=== PATIENT | female | born 1970 | race Caucasian/White ===

== ENCOUNTER 2017-02-21 13:20 | Observation (INO) | payer BC, OTHER ==
[2017-02-21] MEDS ORDERED: ASPIRIN 81 MG TABLET, CHEWABLE PO ONE (14:09)
--- NOTE | 2017-02-21 14:11 | ER Document Report ---
ED Medical Screen (RME) - General Chief Complaint: Chest Pain Stated Complaint: CHEST PAIN Mode of Arrival: Ambulatory Information source: Patient Notes: Testing 46-year-old female presents to the emergency room with back ache radiating to the left shoulder on and off for the past 2 days. Cardiac risk factors include hypertension, smoking, family history and postmenopausal TRAVEL OUTSIDE OF THE [place] IN LAST 30 DAYS: No - Related Data Allergies/Adverse Reactions: No Known Allergies Allergy (Verified 02/21/17 13:30) Past Medical History - Past Medical History Cardiac Medical History: Reports: Hx Hypertension - meds x 2-3 months Pulmonary Medical History: Neurological Medical History: Endocrine Medical History: Reports: Hx Hypothyroidism Renal/ Medical History: Denies: Hx Peritoneal Dialysis Musculoskeltal Medical History: Past Surgical History: Reports: Hx Hysterectomy. Denies: Hx Pacemaker - Immunizations Hx Diphtheria, Pertussis, Tetanus Vaccination: Yes - 2009 Physical Exam - Vital signs Vitals: Temp Pulse Resp BP Pulse Ox 97.9 F 85 20 175/94 H 100 02/21/17 13:29 02/21/17 13:29 02/21/17 13:29 02/21/17 13:29 02/21/17 13:29 Course - Vital Signs Vital signs: Temp Pulse Resp BP Pulse Ox 97.9 F 85 20 175/94 H 100 02/21/17 13:29 02/21/17 13:29 02/21/17 13:29 02/21/17 13:29 02/21/17 13:29
[2017-02-21 14:58] LABS: ABSOLUTE BASOPHILS # (AUTO) 0.1 10^3/uL (0.0-0.2); ABSOLUTE EOSINOPHILS # (AUTO) 0.7 10^3/uL (0.0-0.6); ABSOLUTE LYMPHOCYTES (AUTO) 1.8 10^3/uL (0.5-4.7); ABSOLUTE MONOCYTES (AUTO) 0.4 10^3/uL (0.1-1.4); ABSOLUTE NEUT (AUTO) 4.1 10^3/uL (1.7-8.2); BASOPHILS % (AUTO) 1.1 % (0-2); EOSINOPHILS % (AUTO) 9.8 % (0-6); HEMATOCRIT 44.4 % (36.0-47.0); HEMOGLOBIN 14.6 g/dL (12.0-15.5); HGB HCT DIFFERENCE -0.6; LYMPHOCYTES % (AUTO) 25.1 % (13-45); MEAN CORPUSCULAR HEMOGLOBIN 27.8 pg (27.0-33.4); MEAN CORPUSCULAR HGB CONC 32.8 g/dL (32.0-36.0); MEAN CORPUSCULAR VOLUME 85 fl (80-97); MONOCYTES % (AUTO) 5.3 % (3-13); RED BLOOD COUNT 5.24 10^6/uL (3.72-5.28); RED CELL DISTRIBUTION WIDTH 15.2 % (11.5-14.0); SEGMENTED NEUTROPHILS % (AUTO) 58.7 % (42-78)
[2017-02-21 15:15] LABS: ALANINE AMINOTRANSFERASE 40 U/L (9-52); ALBUMIN 4.5 g/dL (3.5-5.0); ALKALINE PHOSPHATASE 100 U/L (38-126); ANION GAP 10 (5-19); ASPARTATE AMINO TRANSFERASE 30 U/L (14-36); BILIRUBIN,DIRECT 0.3 mg/dL (0.0-0.4); BILIRUBIN,TOTAL 0.5 mg/dL (0.2-1.3); BLOOD UREA NITROGEN 15 mg/dL (7-20); CALCIUM 9.4 mg/dL (8.4-10.2); CARBON DIOXIDE 26 mmol/L (22-30); CHLORIDE 106 mmol/L (98-107); CREATINE KINASE 79 U/L (30-135); GLUCOSE 89 mg/dL (75-110); POTASSIUM 4.2 mmol/L (3.6-5.0); TOTAL PROTEIN 7.7 g/dL (6.3-8.2)
--- NOTE | 2017-02-21 15:23 | RADIOLOGY REPORT (SQ) ---
EXAM DESCRIPTION: CHEST SINGLE VIEW COMPLETED DATE/TIME: 02/21/2017 2:54 pm REASON FOR STUDY: cp COMPARISON: 05/31/2014 NUMBER OF VIEWS: One view. TECHNIQUE: Single frontal radiographic view of the chest acquired. LIMITATIONS: Patient body habitus. FINDINGS: LUNGS AND PLEURA: No opacities, masses or pneumothorax. No pleural effusion. MEDIASTINUM AND HILAR STRUCTURES: No masses. Contour normal. HEART AND VASCULAR STRUCTURES: Heart normal in size. Normal vasculature. BONES: No acute findings. HARDWARE: None in the chest. OTHER: No other significant finding. IMPRESSION: NO SIGNIFICANT RADIOGRAPHIC FINDING IN THE CHEST. TECHNICAL DOCUMENTATION: JOB ID: [id number] [employer]- All Rights Reserved
[2017-02-21 15:27] LABS: CREATINE KINASE MB 0.71 ng/mL (<4.55)
[2017-02-21 15:29] LABS: TROPONIN I < 0.012 ng/mL
--- NOTE | 2017-02-21 15:46 | ER Document Report ---
ED General - General Chief Complaint: Chest Pain Stated Complaint: CHEST PAIN Time Seen by Provider: 02/21/17 14:21 Mode of Arrival: Ambulatory Information source: Patient Notes: 46-year-old female history of hypertension mitral valve prolapse presents with complaints of chest pain. Patient notes intermittent sharp chest pains and pressure sensation as well as shortness of breath with bilateral calf cramping over the past few days. Patient does travel for work TRAVEL OUTSIDE OF THE [place] IN LAST 30 DAYS: No - HPI Onset: Yesterday Onset/Duration: Sudden Quality of pain: Achy, Sharp Severity: Mild Pain Level: 1 Associated symptoms: Chest pain, Shortness of breath Exacerbated by: Denies Relieved by: Denies Similar symptoms previously: Yes Recently seen / treated by doctor: Yes - Related Data Allergies/Adverse Reactions: No Known Allergies Allergy (Verified 02/21/17 13:30) Past Medical History - General Information source: Patient - Social History Smoking Status: Never Smoker Cigarette use (# per day): No Chew tobacco use (# tins/day): No Smoking Education Provided: No Family History: Hypertension - Father age 63 hypertension, mother hypertension A. fib with pacemaker. No history of coronary artery disease. Patient has suicidal ideation: No Patient has homicidal ideation: No - Past Medical History Cardiac Medical History: Reports: Hx Hypertension - meds x 2-3 months Pulmonary Medical History: Neurological Medical History: Endocrine Medical History: Reports: Hx Hypothyroidism Renal/ Medical History: Denies: Hx Peritoneal Dialysis Musculoskeltal Medical History: Past Surgical History: Reports: Hx Hysterectomy. Denies: Hx Pacemaker - Immunizations Hx Diphtheria, Pertussis, Tetanus Vaccination: Yes - 2009 Review of Systems - Review of Systems Notes: REVIEW OF SYSTEMS: CONSTITUTIONAL : Denies fever, chills, or sweats. Denies recent illness. EENT: Denies eye, ear, throat, or mouth pain or symptoms. Denies nasal or sinus congestion or discharge. Denies throat, tongue, or mouth swelling or difficulty swallowing. CARDIOVASCULAR: Admits to chest pain RESPIRATORY: Denies cough, cold, or chest congestion. Denies shortness of breath, difficulty breathing, or wheezing. GASTROINTESTINAL: Denies abdominal pain or distention. Denies nausea, vomiting , or diarrhea. Denies blood in vomitus, stools, or per rectum. Denies black, tarry stools. Denies constipation. GENITOURINARY: Denies difficulty urinating, painful urination, burning, frequency, blood in urine, or discharge. FEMALE GENITOURINARY: Denies vaginal bleeding, heavy or abnormal periods, irregular periods. Denies vaginal discharge or odor. MUSCULOSKELETAL: Admits to calf pain SKIN: Denies rash, lesions or sores. HEMATOLOGIC : Denies easy bruising or bleeding. LYMPHATIC: Denies swollen, enlarged glands. NEUROLOGICAL: Denies confusion or altered mental status. Denies passing out or loss of consciousness. Denies dizziness or lightheadedness. Denies headache. Denies weakness or paralysis or loss of use of either side. Denies problems with gait or speech. Denies sensory loss, numbness, or tingling. Denies seizures. PSYCHIATRIC: Denies anxiety or stress. Denies depression, suicidal ideation, or homicidal ideation. ALL OTHER SYSTEMS REVIEWED AND NEGATIVE. PHYSICAL EXAMINATION: GENERAL: Well-appearing, well-nourished and in no acute distress. HEAD: Atraumatic, normocephalic. EYES: Pupils equal round and reactive to light, extraocular movements intact, conjunctiva are normal. ENT: Nares patent, oropharynx clear without exudates. Moist mucous membranes. NECK: Normal range of motion, supple without lymphadenopathy LUNGS: Breath sounds clear to auscultation bilaterally and equal. No wheezes rales or rhonchi. HEART: Regular rate and rhythm without murmurs ABDOMEN: Soft, nontender, nondistended abdomen. No guarding, no rebound. No masses appreciated. Female : deferred Musculoskeletal: Normal range of motion, no pitting or edema. No cyanosis. NEUROLOGICAL: Cranial nerves grossly intact. Normal speech, normal gait. Normal sensory, motor exams PSYCH: Normal mood, normal affect. SKIN: Warm, Dry, normal turgor, no rashes or lesions noted. Dictation was performed using [employer] voice recognition software Physical Exam - Vital signs Vitals: Temp Pulse Resp BP Pulse Ox 97.9 F 85 20 175/94 H 100 02/21/17 13:29 02/21/17 13:29 02/21/17 13:29 02/21/17 13:29 02/21/17 13:29 Course - Re-evaluation Re-evalutation: 02/21/17 15:46 Lab work imaging is pending to rule out both cardiac as well as pulmonary event 02/21/17 16:43 CT chest was negative for set of cardiac enzymes are negative. Given the patient pain is different from her normal chest pain I will observe her overnight for further evaluation and care - Vital Signs Vital signs: Temp Pulse Resp BP Pulse Ox 97.9 F 85 18 130/63 H 96 02/21/17 13:29 02/21/17 13:29 02/21/17 16:02 02/21/17 16:02 02/21/17 16:02 - Laboratory Result Diagrams: 02/21/17 14:45 02/21/17 14:45 Laboratory results interpreted by me: 02/21/17 14:45 RDW 15.2 H Eosinophils % 9.8 H Absolute Eosinophils 0.7 H - Diagnostic Test Radiology reviewed: Image reviewed, Reports reviewed - EKG Interpretation by [facility] EKG shows normal: Sinus rhythm, [place], Intervals, QRS Complexes Discharge - Discharge Clinical Impression: Chest pain Qualifiers: Chest pain type: unspecified Qualified Code(s): R07.9 - Chest pain, unspecified Condition: Stable Disposition: ADMITTED OBSERVATION Admitting Provider: Hospitalist Unit Admitted: Telemetry Instructions: Chest Pain of Unclear Cause ([facility])
--- NOTE | 2017-02-21 16:22 | RADIOLOGY REPORT (SQ) ---
EXAM DESCRIPTION: CTA CHEST COMPLETED DATE/TIME: 02/21/2017 3:45 pm REASON FOR STUDY: sob, hypoxemia COMPARISON: None. TECHNIQUE: CT scan of the chest performed using helical scanning technique with dynamic intravenous contrast injection. Images reviewed with lung, soft tissue and bone windows. Reconstructed coronal and sagittal MPR images reviewed. Additional 3 dimensional post-processing performed to develop Maximal Intensity Projection images (IA P). All images stored on PACS. All CT scanners at this facility use dose modulation, iterative reconstruction, and/or weight based d osing when appropriate to reduce radiation dose to as low as reasonably achievable (ALARA). [facility]: Dose Right [facility]: CareDose [facility]: Dose Right [facility]: Teradose 4D [facility]: ishBowl CONTRAST TYPE AND DOSE: contrast/concentration: Isovue 370.00 mg/ml; Total Contrast Delivered: 77.0 ml; Total Saline Delivered: 80.0 ml RENAL FUNCTION: Creatinine 0.90 RADIATION DOSE: 67.17 . LIMITATIONS: None. FINDINGS: LUNGS AND PLEURA: No masses, infiltrates, pneumothorax. No pleural effusions, calcificati ons. AORTA AND GREAT VESSELS: No aneurysm or dissection. HEART: No pericardial effusion. PULMONARY ARTERIES: No emboli visualized in the main pulmonary arteries or the segmental branches. HILAR AND MEDIASTINAL STRUCTURES: No identified masses or abnormal nodes. HARDWARE: None in the chest. UPPER ABDOMEN: No significant findings. Limited exam. THYROID AND OTHER SOFT TISSUES: No masses. No adenopathy. BONES: No acute or significant finding. 3D MIPS: Confirm above findings. OTHER: No other significant finding. IMPRESSION: NORMAL CTA OF THE CHEST. NO PULMONARY EMBOLI. TECHNICAL DOCUMENTATION: JOB ID: [id number] Quality ID # [id number]: Final reports with documentation of one or more dose reduction techniques (e.g., Au tomated exposure control, adjustment of the mA and/or kV according to patient size, use of iterative reconstruction technique) 2010 [employer]- All Rights Reserved
[2017-02-21] MEDS ORDERED: ONDANSETRON 4 MG TAB.RAPDIS PO PRN (17:10)
[2017-02-21] MEDS ORDERED: LORAZEPAM 0.5 MG TABLET PO PRN (17:14)
--- NOTE | 2017-02-21 17:26 | PDOC H&P ---
History of Present Illness Admission Date/PCP: DARBY MONTGOMERY MD Patient complains of: Chest pain History of Present Illness: IMELDA MIKE is a 46 year old female with no history of heart disease but a family history of heart disease who presents with chest pain. The patient reports that yesterday morning around 4:30 in the morning she awoke and had left -sided shoulder pain. The patient reports that pain resolved and she was driving today and began to experience left shoulder pain again and felt a tingling sensation that went down into her left arm. She also described a sharp stabbing pain in her left chest but then reportedly became more of a stabbing dull pressure type pain. She denied having any type of palpitations or tachycardia. She denies any nausea or vomiting but did report having some associated diaphoresis with this. 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 EKG shows no acute abnormalities. She last had a stress test 1 year ago. The patient has a history of high blood pressure and has been compliant with her medications. The patient does smoke less than a half pack of cigarettes daily. Denies any palpitations. Denies any orthopnea PND. Denies any lower extremity edema. Denies any cough or hematemesis. She did have a chest CT that was negative for any pulmonary embolism. Past Medical History Cardiac Medical History: Reports: Hypertension - meds x 2-3 months Pulmonary Medical History: Endocrine Medical History: Reports: Hypothyroidism Malignancy Medical History: Reports: None GI Medical History: Reports: None Musculoskeltal Medical History: Reports: None Skin Medical History: Reports: None Psychiatric Medical History: Reports: None Hematology: Denies: Anemia Infectious Medical History: Reports: None Past Surgical History Past Surgical History: Reports: Hysterectomy Denies: Pacemaker Social History Information Source: Patient Lives with: Spouse/Significant other Smoking Status: Current Some Day Smoker Frequency of Alcohol Use: Rare Hx Recreational Drug Use: No Drugs: None Hx Prescription Drug Abuse: No - Advance Directive Resuscitation Status: Full Code Family History Family History: Hypertension - Father age 63 hypertension, mother hypertension A. fib with pacemaker. No history of coronary artery disease. Family History: Father 67 alive. He has hypertension and heart disease. Mother at age 66 with hypertension and atrial fibrillation. Parental Family History Reviewed: Yes Children Family History Reviewed: No Sibling(s) Family History Reviewed.: No Medication/Allergy Allergies/Adverse Reactions: No Known Allergies Allergy (Verified 02/21/17 13:30) Review of Systems Constitutional: ABSENT: chills, fever(s), headache(s), weight gain, weight loss Eyes: ABSENT: visual disturbances Ears: ABSENT: hearing changes Cardiovascular: PRESENT: as per HPI Respiratory: ABSENT: cough, hemoptysis Gastrointestinal: ABSENT: abdominal pain, constipation, diarrhea, hematemesis, hematochezia, nausea, vomiting Genitourinary: ABSENT: dysuria, hematuria Musculoskeletal: ABSENT: joint swelling Integumentary: ABSENT: rash, wounds Neurological: ABSENT: abnormal gait, abnormal speech, confusion, dizziness, focal weakness, syncope Psychiatric: ABSENT: anxiety, depression Endocrine: ABSENT: cold intolerance, heat intolerance, polydipsia, polyuria Hematologic/Lymphatic: ABSENT: easy bleeding, easy bruising Physical Exam Vital Signs: Temp Pulse Resp BP Pulse Ox 97.9 F 85 18 130/63 H 96 02/21/17 13:29 02/21/17 13:29 02/21/17 16:02 02/21/17 16:02 02/21/17 16:02 Intake & Output 02/20/17 02/21/17 02/22/17 06:59 06:59 06:59 Weight 91.6 kg General appearance: PRESENT: no acute distress Head exam: PRESENT: atraumatic, normocephalic Eye exam: PRESENT: conjunctiva pink, EOMI, PERRLA. ABSENT: scleral icterus Ear exam: PRESENT: normal external ear exam Mouth exam: PRESENT: moist, tongue midline Neck exam: ABSENT: carotid bruit, JVD, lymphadenopathy, thyromegaly Respiratory exam: PRESENT: clear to auscultation kiarra. ABSENT: rales, rhonchi, wheezes Cardiovascular exam: PRESENT: RRR. ABSENT: diastolic murmur, rubs, systolic murmur Pulses: PRESENT: normal dorsalis pedis pul Vascular exam: PRESENT: normal capillary refill GI/Abdominal exam: PRESENT: normal bowel sounds, soft. ABSENT: distended, guarding, mass, organolmegaly, rebound, tenderness Rectal exam: PRESENT: deferred Extremities exam: PRESENT: full ROM. ABSENT: calf tenderness, clubbing, pedal edema Neurological exam: PRESENT: alert, awake, oriented to person, oriented to place , oriented to time, oriented to situation, CN II-XII grossly intact. ABSENT: motor sensory deficit Psychiatric exam: PRESENT: appropriate affect Skin exam: PRESENT: dry, intact, warm. ABSENT: cyanosis, rash Results Laboratory Results: 02/21/17 14:45 02/21/17 14:45 02/21/17 02/21/17 14:45 14:45 WBC 7.0 RBC 5.24 Hgb 14.6 Hct 44.4 MCV 85 MCH 27.8 MCHC 32.8 RDW 15.2 H Plt Count 283 Seg Neutrophils % 58.7 Lymphocytes % 25.1 Monocytes % 5.3 Eosinophils % 9.8 H Basophils % 1.1 Absolute Neutrophils 4.1 Absolute Lymphocytes 1.8 Absolute Monocytes 0.4 Absolute Eosinophils 0.7 H Absolute Basophils 0.1 Sodium 142.0 Potassium 4.2 Chloride 106 Carbon Dioxide 26 Anion Gap 10 BUN 15 Creatinine 0.90 Est GFR ( Amer) > 60 Est GFR (Non-Af Amer) > 60 Glucose 89 Calcium 9.4 Total Bilirubin 0.5 AST 30 ALT 40 Alkaline Phosphatase 100 Total Protein 7.7 Albumin 4.5 02/21/17 02/21/17 14:45 14:45 Creatine Kinase 79 CK-MB (CK-2) 0.71 Troponin I < 0.012 Impressions: Chest X-Ray 02/21/17 14:10 IMPRESSION: NO SIGNIFICANT RADIOGRAPHIC FINDING IN THE CHEST. Chest/Abdomen CTA 02/21/17 15:24 IMPRESSION: NORMAL CTA OF THE CHEST. NO PULMONARY EMBOLI. Assessment & Plan - Diagnosis (1) Chest pain Qualifiers: Chest pain type: unspecified Qualified Code(s): R07.9 - Chest pain, unspecified Is this a current diagnosis for this admission?: YesPlan: Patient has risk factors for heart disease given a positive family history and tobacco abuse and hypertension. Her pain would be atypical for coronary artery disease however. This most likely is noncardiac in nature. However we will monitor overnight and check serial cardiac enzymes. If her cardiac enzymes are negative we will obtain a stress test in the morning. We will give aspirin daily. (2) Hypertension Is this a current diagnosis for this admission?: YesPlan: Patient has been on lisinopril as an outpatient. Will continue with that. - Time Time Spent: 30 to 50 Minutes Smoking Cessation Education: 3 to 10 minutes Anticipated discharge: Home Within: within 24 hours - Plan Summary Plan Summary: Admit as observation as I anticipate this will require less than a 2 midnight hospital stay.
--- NOTE | 2017-02-21 19:14 | EKG REPORT ---
SEVERITY:- NORMAL ECG - SINUS RHYTHM : Confirmed by: Julien Hogue MD 21-Feb-2017 19:14:00
[2017-02-21 21:26] LABS: CREATINE KINASE MB 0.58 ng/mL (<4.55)
[2017-02-21 21:29] LABS: TROPONIN I < 0.012 ng/mL
[2017-02-21] MEDS: ACETAMINOPHEN 325 MG TABLET PO PRN (21:47)
[2017-02-22] MEDS: ACETAMINOPHEN 325 MG TABLET PO PRN ×2 (02:59→08:28)
[2017-02-22 03:15] LABS: CREATINE KINASE MB 0.53 ng/mL (<4.55)
[2017-02-22 03:16] LABS: TROPONIN I < 0.012 ng/mL
[2017-02-22 08:59] LABS: HEMATOCRIT 42.1 % (36.0-47.0); HEMOGLOBIN 13.7 g/dL (12.0-15.5); MEAN CORPUSCULAR HEMOGLOBIN 28.1 pg (27.0-33.4); MEAN CORPUSCULAR HGB CONC 32.7 g/dL (32.0-36.0); MEAN CORPUSCULAR VOLUME 86 fl (80-97); RED BLOOD COUNT 4.89 10^6/uL (3.72-5.28); RED CELL DISTRIBUTION WIDTH 14.8 % (11.5-14.0); WHITE BLOOD COUNT 5.6 10^3/uL (4.0-10.5)
[2017-02-22 09:19] LABS: ANION GAP 9 (5-19); BLOOD UREA NITROGEN 22 mg/dL (7-20); CARBON DIOXIDE 25 mmol/L (22-30); CHLORIDE 108 mmol/L (98-107); CREATINE KINASE 67 U/L (30-135); CREATININE RESULT 0.84 mg/dL (0.52-1.25); GLUCOSE 85 mg/dL (75-110); MAGNESIUM 2.1 mg/dL (1.6-2.3); POTASSIUM 4.1 mmol/L (3.6-5.0); SODIUM 141.8 mmol/L (137-145)
[2017-02-22 09:30] LABS: CREATINE KINASE MB 0.45 ng/mL (<4.55)
[2017-02-22 09:34] LABS: TROPONIN I < 0.012 ng/mL
[2017-02-22] MEDS ORDERED: ASPIRIN 81 MG TABLET, ENT COATED PO SCH (10:00)
[2017-02-22] MEDS ORDERED: REGADENOSON INJ 0.4 MG/5 ML DISP.SYRIN IV ONE (12:35)
--- NOTE | 2017-02-22 14:15 | DRAGON STRESS TEST REPORT ---
Intravenous LexiScan Cardiolite stress test using single photon emmision computerized tomographic. Date of procedure: 02/22/2017. Ordering Provider: Dr. Jauregui. Patient Status. : In Patient. Indication: Chest pain. Coronary risk factors: Age, hypertension, tobacco abuse disorder, and family history of coronary artery disease. Resting EKG: Sinus Bradycardia. Within normal limits. Stress EKG: No changes of ischemia. The patient had no chest pain or discomfort, and there were no arrhythmias seen. Reason for termination: Protocol. Conclusions: Normal EKG and hemodynamic response to IV LexiScan. Nuclear data: At rest the patient was given 14.60 millicuries of technetium 99 sestamibi injected intravenously. As per protocol rest non gated SPECT images were obtained. Subsequently the patient was given intravenous LexiScan at a dose of 0.4 mg in 5 mL intravenously, followed by flush with normal saline. Subsequently the stress dose of 47.5 millicuries of technetium 99 sestamibi was injected intravenously. As per protocol stress gated images were obtained. Next Nuclear interpretation: Review of images showed that all segments of the myocardium had normal perfusion at rest, and normal perfusion post stress with IV LexiScan. All segments of the myocardium had normal motion, contraction, and thickening by gated study. T. I D. ratio was normal at. Computer read rest, and stress left ventricular ejection fraction were 66 %, and 69 % respectively. Conclusion: 1. There is no scintigraphic evidence of LexiScan induced myocardial ischemia. 2. There is no scintigraphic evidence of myocardial infarction/scar. Recommendations: Aggressive risk factor modification, and treating the underlying co- morbidities MTDD
--- NOTE | 2017-02-22 15:04 | PDOC DISCHARGE SUMMARY ---
General - Admit/Disc Date/PCP Admission Date/Primary Care Provider: 02/21/17 17:11 DARBY MONTGOMERY MD Discharge Date: 02/22/17 - Discharge Diagnosis (1) Chest pain Is this a current diagnosis for this admission?: YesSummary: Normal stress test. Most likely is musculoskeletal pain (2) Hypertension Is this a current diagnosis for this admission?: Yes (3) Hypothyroidism Is this a current diagnosis for this admission?: Yes - Additional Information Resuscitation Status: Full Code Discharge Diet: Regular Discharge Activity: Activity As Tolerated Home Medications: Aspirin [Ecotrin 81 mg EC Tablet] 81 mg PO DAILY tabec 02/22/17 Levothyroxine Sodium [Synthroid] 50 mcg PO DAILY 02/22/17 History of Present Illness History of Present Illness: IMELDA MIKE is a 46 year old female with no history of heart disease but a family history of heart disease who presents with chest pain. The patient reports that yesterday morning around 4:30 in the morning she awoke and had left -sided shoulder pain. The patient reports that pain resolved and she was driving today and began to experience left shoulder pain again and felt a tingling sensation that went down into her left arm. She also described a sharp stabbing pain in her left chest but then reportedly became more of a stabbing dull pressure type pain. She denied having any type of palpitations or tachycardia. She denies any nausea or vomiting but did report having some associated diaphoresis with this. 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 EKG shows no acute abnormalities. She last had a stress test 1 year ago. The patient has a history of high blood pressure and has been compliant with her medications. The patient does smoke less than a half pack of cigarettes daily. Denies any palpitations. Denies any orthopnea PND. Denies any lower extremity edema. Denies any cough or hematemesis. She did have a chest CT that was negative for any pulmonary embolism. Hospital Course Hospital Course: 46-year-old female with family history of heart disease who presented with atypical chest pain. Patient was monitored on telemetry and had negative cardiac enzymes. She then underwent a nuclear stress test which was negative for any ischemia. It is felt that her pain most likely is musculoskeletal in nature. She is instructed to use ibuprofen as needed. She will follow-up with her primary care doctor in 2 weeks Physical Exam Vital Signs: Temp Pulse Resp BP Pulse Ox 97.8 F 69 17 134/75 H 97 02/22/17 12:25 02/22/17 12:25 02/22/17 12:25 02/22/17 12:25 02/22/17 12:25 Intake & Output 02/21/17 02/22/17 02/23/17 06:59 06:59 06:59 Weight 91 kg General appearance: PRESENT: no acute distress Eye exam: PRESENT: conjunctiva pink. ABSENT: scleral icterus Mouth exam: PRESENT: moist, tongue midline Neck exam: ABSENT: JVD Respiratory exam: PRESENT: clear to auscultation kiarra. ABSENT: rales, rhonchi, wheezes Cardiovascular exam: PRESENT: RRR. ABSENT: diastolic murmur, rubs, systolic murmur GI/Abdominal exam: PRESENT: normal bowel sounds, soft. ABSENT: distended, guarding, mass, organolmegaly, rebound, tenderness Extremities exam: PRESENT: full ROM. ABSENT: calf tenderness, clubbing, pedal edema Neurological exam: PRESENT: alert, awake, oriented to person, oriented to place , oriented to time, oriented to situation, CN II-XII grossly intact. ABSENT: motor sensory deficit Psychiatric exam: PRESENT: appropriate affect Skin exam: PRESENT: dry, intact, warm. ABSENT: cyanosis, rash Results Laboratory Results: 02/22/17 08:40 02/22/17 08:40 02/22/17 02/22/17 08:40 08:40 WBC 5.6 RBC 4.89 Hgb 13.7 Hct 42.1 MCV 86 MCH 28.1 MCHC 32.7 RDW 14.8 H Plt Count 266 Sodium 141.8 Potassium 4.1 Chloride 108 H Carbon Dioxide 25 Anion Gap 9 BUN 22 H Creatinine 0.84 Est GFR ( Amer) > 60 Est GFR (Non-Af Amer) > 60 Glucose 85 Calcium 9.0 Magnesium 2.1 02/21/17 02/21/17 02/22/17 20:52 20:52 02:44 Creatine Kinase 63 64 CK-MB (CK-2) 0.58 Troponin I < 0.012 02/22/17 02/22/17 02/22/17 02:44 08:40 08:40 Creatine Kinase 67 CK-MB (CK-2) 0.53 0.45 Troponin I < 0.012 < 0.012 Impressions: Chest X-Ray 02/21/17 14:10 IMPRESSION: NO SIGNIFICANT RADIOGRAPHIC FINDING IN THE CHEST. Chest/Abdomen CTA 02/21/17 15:24 IMPRESSION: NORMAL CTA OF THE CHEST. NO PULMONARY EMBOLI. Qualifiers PATEINT BEING DISCHARGED WITH ANY OF THE FOLLOWING DIAGNOSIS?: No Plan Discharge Plan: Discharged to home. Will follow with primary care in 2 weeks Time Spent: Less than 30 Minutes
[2017-02-22 15:25] VITALS: BP 117/71
== END 2017-02-22 16:04 | disposition home or self-care (01) ==
LOC: ER 13:20 → EH 17:11 → UNDOADMOB 17:30 → EH 17:30 → 5 20:20
PROVIDERS: ADMIT Internal Medicine; ATTEND Internal Medicine
PROC: HZ31ZZZ Individual Counseling for Substance Abuse Treatment, Behavioral (ICD-10-PCS; principal; 2017-02-21)
DX: R07.89 Other chest pain (principal); I10 Essential (primary) hypertension; E03.9 Hypothyroidism, unspecified; M25.512 Pain in left shoulder; R20.2 Paresthesia of skin; R06.02 Shortness of breath; F17.210 Nicotine dependence, cigarettes, uncomplicated; Z79.82 Long term (current) use of aspirin; Z79.899 Other long term (current) drug therapy; Z82.49 Family history of ischemic heart disease and other diseases of the circulatory system; Z78.0 Asymptomatic menopausal state; Z86.79 Personal history of other diseases of the circulatory system
CPT/HCPCS: 93005; 99285; 36415 ×2; 82553 ×2; 82550 ×2; 83735; 85025; 85027; 80048; 80053; 84484 ×2; 85379; 93017; 71010; 78452; 71275; 93010; 99406; A9500; J2785; J3490 ×2; Q9969; G0378

== ENCOUNTER 2017-08-19 19:14 | Emergency (ER) | payer BC, OTHER ==
[2017-08-19] MEDS ORDERED: ONDANSETRON HCL INJ/PF 4 MG/2 ML SDV IV ONE (21:13)
--- NOTE | 2017-08-19 21:15 | ER Document Report ---
ED General - General Chief Complaint: Chest Pain Stated Complaint: CHEST PAIN AND VOMITING Time Seen by Provider: 08/19/17 21:03 Notes: 47-year-old female presents with intermittent tightness across her chest "like indigestion" with nausea vomiting for a couple of months but today she is worse and having upper abdominal pain with repeated vomiting. It is not one side or the other but more periumbilical. It has not migrated. No urinary symptoms. Feels like a band is constricting around her lower abdomen. She currently has no chest pain or shortness of breath. Denies fevers or chills. Has not eaten much today. She was here in February for chest pain and had a negative Lexiscan. TRAVEL OUTSIDE OF THE [place] IN LAST 30 DAYS: No - Related Data Allergies/Adverse Reactions: No Known Allergies Allergy (Verified 02/21/17 13:30) Past Medical History - General Information source: Patient - Social History Smoking Status: Never Smoker Drug Abuse: None Family History: Hypertension - Father age 63 hypertension, mother hypertension A. fib with pacemaker. No history of coronary artery disease. - Past Medical History Cardiac Medical History: Reports: Hx Hypertension - meds x 2-3 months Pulmonary Medical History: Neurological Medical History: Endocrine Medical History: Reports: Hx Hypothyroidism Renal/ Medical History: Denies: Hx Peritoneal Dialysis Musculoskeltal Medical History: Past Surgical History: Reports: Hx Hysterectomy. Denies: Hx Pacemaker - Immunizations Hx Diphtheria, Pertussis, Tetanus Vaccination: Yes - 2009 Review of Systems - Review of Systems Notes: REVIEW OF SYSTEMS GEN: Denies fever, chills, weight loss ENT: Denies sore throat, nasal discharge, ear pain EYES: Denies blurry vision, eye pain, discharge CV: Denies chest pain, palpitations, edema RESP: Denies cough, shortness of breath, wheezing GI: Dental pain and d vomiting MSK: Denies joint pain/swelling, edema, SKIN: Denies rash, skin lesions LYMPH: Denies swollen glands/lymph nodes NEURO: Denies headache, focal weakness or numbness, dizziness PSYCH: Denies depression, suicidal or homicidal ideation PHYSICAL EXAMINATION General: No acute distress, well-nourished Head: Atraumatic, normocephalic ENT: Mouth normal, oropharynx moist, no exudates or tonsillar enlargement Eyes: Conjunctiva normal, pupils equal, lids normal Neck: No JVD, supple, no guarding CVS: Normal rate, regular rhythm, no murmurs Resp: No resp distress, equal and normal breath sounds bilaterally GI: Nondistended, soft, these mild tenderness without rebound or guarding Ext: No deformities, no edema, normal range of motion in upper and lower ext Back: No CVA or midline TTP Skin: No rash, warm Lymphatic: No lymphadeopathy noted Neuro: Awake, alert. Face symmetric. GCS 15. Physical Exam - Vital signs Vitals: Temp Pulse Resp BP Pulse Ox 99.1 F 101 H 18 99/74 L 96 08/19/17 19:26 08/19/17 19:26 08/19/17 19:26 08/19/17 19:26 08/19/17 19:26 Course - Re-evaluation Re-evalutation: 08/19/17 21:14 Upper abdominal pain with nausea and vomiting for 1 day in the setting of recent indigestion. Differential includes gastritis GERD ulcer disease, doubt given a tenderness, gallbladder disease although doubt cholecystitis given no Rapp's. She will get fluids pain medication acid reduction and will rule out pancreatitis with lipase, get labs and do ultrasound right upper quadrant. 08/19/17 23:57 Labs normal. Ultrasound negative. Patient feels better. Will refer to GI for likely reflux. Started on PPI. I have discussed with the patient there likely diagnosis, aftercare plan, follow -up plans and my usual and customary return precautions. They verbalized understanding of this. - Vital Signs Vital signs: Temp Pulse Resp BP Pulse Ox 99.2 F 101 H 15 106/61 97 08/19/17 23:40 08/19/17 19:26 08/19/17 23:00 08/19/17 23:01 08/19/17 23:01 - Laboratory Result Diagrams: 08/19/17 21:15 08/19/17 21:15 Laboratory results interpreted by me: 08/19/17 08/19/17 21:15 21:15 RDW 14.3 H Seg Neuts % (Manual) 93 H Lymphocytes % (Manual) 4 L Monocytes % (Manual) 2 L Abs Lymphs (Manual) 0.3 L BUN 21 H Est GFR (Non-Af Amer) 51 L Glucose 126 H Lipase 377.1 H Discharge - Discharge Clinical Impression: Gastritis Qualifiers: Gastritis type: other gastritis Chronicity: acute Gastritis bleeding: without bleeding Qualified Code(s): K29.00 - Acute gastritis without bleeding Condition: Good Disposition: HOME, SELF-CARE Instructions: Antacid Therapy ([facility]), Reflux Disease (GERD) ([facility]) Additional Instructions: Your lipase test was mildly elevated which can be seen with mild pancreatitis or any source of stomach inflammation. Please take the medicine I prescribed, and if you are getting any worse I would like you return to the emergency room. Prescriptions: Pantoprazole Sodium [Protonix] 20 mg PO BID #30 tablet.dr Referrals: SANDER CISNEROS MD [ACTIVE STAFF] - Follow up as needed
[2017-08-19 21:28] LABS: HEMATOCRIT 43.9 % (36.0-47.0); MEAN CORPUSCULAR HEMOGLOBIN 29.1 pg (27.0-33.4); MEAN CORPUSCULAR HGB CONC 34.2 g/dL (32.0-36.0); MEAN CORPUSCULAR VOLUME 85 fl (80-97); PLATELET COUNT 258 10^3/uL (150-450); RED BLOOD COUNT 5.16 10^6/uL (3.72-5.28); RED CELL DISTRIBUTION WIDTH 14.3 % (11.5-14.0); WHITE BLOOD COUNT 8.2 10^3/uL (4.0-10.5)
[2017-08-19 21:39] LABS: ANION GAP 11 (5-19); BLOOD UREA NITROGEN 21 mg/dL (7-20); CALCIUM 9.3 mg/dL (8.4-10.2); CARBON DIOXIDE 24 mmol/L (22-30); CHLORIDE 106 mmol/L (98-107); GLUCOSE 126 mg/dL (75-110); LIPASE 377.1 U/L (23-300); POTASSIUM 3.9 mmol/L (3.6-5.0); SODIUM 141.4 mmol/L (137-145)
[2017-08-19 21:49] LABS: ABSOLUTE LYMPHOCYTES# (MANUAL) 0.3 10^3/uL (0.5-4.7); ABSOLUTE MONOCYTES # (MANUAL) 0.2 10^3/uL (0.1-1.4); ABSOLUTE NEUTROPHILS# (MANUAL) 7.6 10^3/uL (1.7-8.2); ANISOCYTOSIS SLIGHT; BASOPHILS % (MANUAL) 0 % (0-2); EOSINOPHILS % (MANUAL) 1 % (0-6); LYMPHOCYTES % (MANUAL) 4 % (13-45); MONOCYTES % (MANUAL) 2 % (3-13); PLATELET COMMENT ADEQUATE; SEGMENTED NEUTROPHILS % (MAN) 93 % (42-78); TOTAL CELLS COUNTED 100
[2017-08-19 21:50] LABS: PLATELET LARGE PRESENT
--- NOTE | 2017-08-19 22:01 | RADIOLOGY REPORT (SQ) ---
EXAM DESCRIPTION: CHEST SINGLE VIEW COMPLETED DATE/TIME: 08/19/2017 9:37 pm REASON FOR STUDY: CP vomiting COMPARISON: CT angio chest 02/21/2017 EXAM PARAMETERS: NUMBER OF VIEWS: One view. TECHNIQUE: Single frontal radiographic view of the chest acquired. RADIATION DOSE: NA LIMITATIONS: None. FINDINGS: LUNGS AND PLEURA: No opacities, masses or pneumothorax. No pleural effusion. MEDIASTINUM AND HILAR STRUCTURES: No masses. Contour normal. HEART AND VASCULAR STRUCTURES: Heart normal in size. Normal vasculature. BONES: No acute findings. HARDWARE: None in the chest. OTHER: No other significant finding. IMPRESSION: NO ACUTE RADIOGRAPHIC FINDING IN THE CHEST. TECHNICAL DOCUMENTATION: JOB ID: [id number] [employer]- All Rights Reserved
--- NOTE | 2017-08-19 23:55 | RADIOLOGY REPORT (SQ) ---
EXAM DESCRIPTION: U/S ABDOMEN LIMITED W/O DOP CLINICAL HISTORY: 47 years, Female, Upper abdominal pain with vomiting rule out gallst COMPARISON: None. LIMITATIONS: As below. FINDINGS: Gallbladder, liver, 0.4 cm diameter common duct, 11.4 cm right kidney, visualized mid and distal abdominal aorta appear of unremarkable size, shape, echotexture, and vascularity. Pancreas is obscured due to bowel gas. No significant free fluid. IMPRESSION: No acute findings. Pancreas is obscured. 2011 [employer]- All Rights Reserved
[2017-08-20 00:15] VITALS: BP 116/72
[2017-08-20] MEDS ORDERED: NITROGLYCERIN/D5W 50 MG/250 ML RTUINJ IV ONE (02:51)
--- NOTE | 2017-08-20 10:36 | EKG REPORT ---
SEVERITY:- BORDERLINE ECG - SINUS RHYTHM PROBABLE LEFT ATRIAL ABNORMALITY CONSIDER INFERIOR INFARCT : Confirmed by: Angelika Carey 20-Aug-2017 10:35:51
== END 2017-08-20 00:16 | disposition home or self-care (01) ==
LOC: ER 19:14
DX: K29.00 Acute gastritis without bleeding (principal); R07.9 Chest pain, unspecified; R11.10 Vomiting, unspecified
CPT/HCPCS: 93005; 99285; 96374; 36415; 83690; 85025; 80048; 84484; 71045; 76705; 93010; J2405

== ENCOUNTER 2017-08-21 12:15 | Emergency (ER) | payer BC ==
--- NOTE | 2017-08-21 12:44 | ER Document Report ---
ED Medical Screen (RME) - General Chief Complaint: Upper Abdominal Pain Stated Complaint: ABDOMINAL PAIN Time Seen by Provider: 08/21/17 12:37 TRAVEL OUTSIDE OF THE [place] IN LAST 30 DAYS: No - HPI Patient complains to provider of: Pancreatitis Onset/Duration: Persistent Quality of pain: Sharp Severity: Severe Notes: 08/21/17 12:43 Patient diagnosed with pancreatitis 2 days ago. Patient discharged home. Patient has been eating and drinking milk to try to dull the pain. Comes in with 10/10 epigastric pain with radiation to her back. Also with nausea and vomiting. Pain symptoms not controlled at home although she is continuing to eat normally. Denies fever chills. Patient thinks that she has to get her gallbladder removed. - Related Data Allergies/Adverse Reactions: No Known Allergies Allergy (Verified 08/21/17 12:17) Past Medical History - Social History Chew tobacco use (# tins/day): No Frequency of alcohol use: None Drug Abuse: None - Past Medical History Cardiac Medical History: Reports: Hx Hypertension - meds x 2-3 months Pulmonary Medical History: Neurological Medical History: Endocrine Medical History: Reports: Hx Hypothyroidism Renal/ Medical History: Denies: Hx Peritoneal Dialysis Musculoskeltal Medical History: Past Surgical History: Reports: Hx Hysterectomy. Denies: Hx Pacemaker - Immunizations Hx Diphtheria, Pertussis, Tetanus Vaccination: Yes - 2009 Physical Exam - Vital signs Vitals: Temp Pulse Resp BP Pulse Ox 98.5 F 86 18 138/84 H 99 08/21/17 12:26 08/21/17 12:26 08/21/17 12:26 08/21/17 12:26 08/21/17 12:26 Course - Vital Signs Vital signs: Temp Pulse Resp BP Pulse Ox 98.5 F 86 18 138/84 H 99 08/21/17 12:26 08/21/17 12:26 08/21/17 12:26 08/21/17 12:26 08/21/17 12:26
[2017-08-21] MEDS ORDERED: ONDANSETRON HCL INJ/PF 4 MG/2 ML SDV IV ONE (12:45)
[2017-08-21] MEDS ORDERED: MORPHINE SULFATE 10 MG/ML INJ IV ONE ×2 (12:47→13:43)
[2017-08-21] MEDS ORDERED: FAMOTIDINE INJ/PF 20 MG/2 ML SDV IV ONE (13:05)
[2017-08-21] MEDS ORDERED: NORMAL SALINE 1000 ML 1,000 ML IV ONE (13:06)
[2017-08-21 13:38] LABS: ABSOLUTE BASOPHILS # (AUTO) 0.1 10^3/uL (0.0-0.2); ABSOLUTE EOSINOPHILS # (AUTO) 0.2 10^3/uL (0.0-0.6); ABSOLUTE LYMPHOCYTES (AUTO) 1.5 10^3/uL (0.5-4.7); ABSOLUTE MONOCYTES (AUTO) 0.6 10^3/uL (0.1-1.4); ABSOLUTE NEUT (AUTO) 5.2 10^3/uL (1.7-8.2); BASOPHILS % (AUTO) 0.7 % (0-2); HEMATOCRIT 40.2 % (36.0-47.0); HEMOGLOBIN 13.6 g/dL (12.0-15.5); LYMPHOCYTES % (AUTO) 20.1 % (13-45); MEAN CORPUSCULAR HEMOGLOBIN 28.7 pg (27.0-33.4); MEAN CORPUSCULAR HGB CONC 33.8 g/dL (32.0-36.0); MEAN CORPUSCULAR VOLUME 85 fl (80-97); MONOCYTES % (AUTO) 8.1 % (3-13); PLATELET COUNT 233 10^3/uL (150-450); RED BLOOD COUNT 4.74 10^6/uL (3.72-5.28); RED CELL DISTRIBUTION WIDTH 14.3 % (11.5-14.0); SEGMENTED NEUTROPHILS % (AUTO) 68.1 % (42-78); TOTAL CELLS COUNTED % (AUTO) 100 %; WHITE BLOOD COUNT 7.7 10^3/uL (4.0-10.5)
[2017-08-21 14:01] LABS: ALANINE AMINOTRANSFERASE 27 U/L (9-52); ALBUMIN 3.7 g/dL (3.5-5.0); ALKALINE PHOSPHATASE 72 U/L (38-126); ANION GAP 10 (5-19); ASPARTATE AMINO TRANSFERASE 22 U/L (14-36); BILIRUBIN,DIRECT 0.2 mg/dL (0.0-0.4); BILIRUBIN,TOTAL 0.3 mg/dL (0.2-1.3); BLOOD UREA NITROGEN 16 mg/dL (7-20); CALCIUM 9.3 mg/dL (8.4-10.2); CARBON DIOXIDE 28 mmol/L (22-30); CHLORIDE 104 mmol/L (98-107); GLUCOSE 90 mg/dL (75-110); LIPASE 248.2 U/L (23-300); POTASSIUM 3.6 mmol/L (3.6-5.0); SODIUM 142.4 mmol/L (137-145); TOTAL PROTEIN 6.1 g/dL (6.3-8.2)
--- NOTE | 2017-08-21 14:11 | ER Document Report ---
ED General - General Chief Complaint: Upper Abdominal Pain Stated Complaint: ABDOMINAL PAIN Time Seen by Provider: 08/21/17 12:37 TRAVEL OUTSIDE OF THE [place] IN LAST 30 DAYS: No - HPI Patient complains to provider of: Epigastric abdominal pain Notes: Patient coming in for epigastric abdominal pain ongoing for the last 3 days patient states pain increased with eating. Pain is in the epigastric region. Patient was then seen a slightly elevation in her lipase. Patient was started on a proton pump inhibitor. Patient states the only thing that makes her stomach feel better as milk. Denies any fevers chills trauma. Patient is resting comfortably upon my evaluation. - Related Data Allergies/Adverse Reactions: No Known Allergies Allergy (Verified 08/21/17 12:17) Past Medical History - Social History Smoking Status: Current Every Day Smoker Chew tobacco use (# tins/day): No Frequency of alcohol use: None Drug Abuse: None Family History: Hypertension - Father age 63 hypertension, mother hypertension A. fib with pacemaker. No history of coronary artery disease. Patient has suicidal ideation: No Patient has homicidal ideation: No - Past Medical History Cardiac Medical History: Reports: Hx Hypertension - meds x 2-3 months Pulmonary Medical History: Neurological Medical History: Endocrine Medical History: Reports: Hx Hypothyroidism Renal/ Medical History: Denies: Hx Peritoneal Dialysis Musculoskeltal Medical History: Past Surgical History: Reports: Hx Hysterectomy. Denies: Hx Pacemaker - Immunizations Hx Diphtheria, Pertussis, Tetanus Vaccination: Yes - 2009 Review of Systems - Review of Systems Constitutional: No symptoms reported EENT: No symptoms reported Cardiovascular: No symptoms reported Respiratory: No symptoms reported Gastrointestinal: Abdominal pain Genitourinary: No symptoms reported Female Genitourinary: No symptoms reported Musculoskeletal: No symptoms reported Skin: No symptoms reported Hematologic/Lymphatic: No symptoms reported Neurological/Psychological: No symptoms reported -: Yes All other systems reviewed and negative Physical Exam - Vital signs Vitals: Temp Pulse Resp BP Pulse Ox 98.5 F 86 18 138/84 H 99 08/21/17 12:26 08/21/17 12:26 08/21/17 12:26 08/21/17 12:26 08/21/17 12:26 Interpretation: Normal - General General appearance: Appears well, Alert - HEENT Head: Normocephalic, Atraumatic Eyes: Normal Pupils: PERRL - Respiratory Respiratory status: No respiratory distress Chest status: Nontender Breath sounds: Normal Chest palpation: Normal - Cardiovascular Rhythm: Regular Heart sounds: Normal auscultation Murmur: No - Abdominal Inspection: Normal Distension: No distension Bowel sounds: Normal Tenderness: Nontender Organomegaly: No organomegaly - Back Back: Normal, Nontender - Extremities General upper extremity: Normal inspection, Nontender, Normal color, Normal ROM , Normal temperature General lower extremity: Normal inspection, Nontender, Normal color, Normal ROM , Normal temperature, Normal weight bearing. No: Shira's sign - Neurological Neuro grossly intact: Yes Cognition: Normal Orientation: AAOx4 [place] Coma Scale Eye Opening: Spontaneous [place] Coma Scale Verbal: Oriented [place] Coma Scale Motor: Obeys Commands [place] Coma Scale Total: 15 Speech: Normal Motor strength normal: LUE, RUE, LLE, RLE Sensory: Normal - Psychological Associated symptoms: Normal affect, Normal mood - Skin Skin Temperature: Warm Skin Moisture: Dry Skin Color: Normal Course - Re-evaluation Re-evalutation: 08/21/17 14:07 Laboratory values today show a decrease in lipase. I did perform a CT scan of the evaluate further. His CT scan is normal more likely patient has underlying gastritis patient artery has an appointment follow-up with a GI specialist. Patient is already on a PPI. Will add Carafate and Reglan to this regimen along with some Ultram. For pain - Vital Signs Vital signs: Temp Pulse Resp BP Pulse Ox 98.5 F 86 18 138/84 H 99 08/21/17 12:26 08/21/17 12:26 08/21/17 12:26 08/21/17 12:26 08/21/17 12:26 - Laboratory Result Diagrams: 08/21/17 13:24 08/21/17 13:24 Laboratory results interpreted by me: 08/21/17 08/21/17 13:24 13:24 RDW 14.3 H Est GFR (Non-Af Amer) 57 L Total Protein 6.1 L Discharge - Discharge Clinical Impression: Epigastric abdominal pain, Gastritis Condition: Good Disposition: HOME, SELF-CARE Unit Admitted: Labor Check Instructions: Abdominal Pain ([facility]), Gastritis ([facility]), Oral Narcotic Medication ( [facility]), Clear Liquid Diet ([facility]), Low-Fat Diet ([facility]) Additional Instructions: Follow-up with your primary care physician. Take medications as prescribed. Your CAT scan laboratory values today do not show any significant pathology. Here in the ER we can evaluate your liver gallbladder bowels pancreas very well however had very limited means of evaluating her stomach. I do believe you need an upper GI scope performed. Please stick to a clear liquid diet for the next 24 hours then advance as tolerated. I would highly recommend avoiding foods with excess grease fat or oil. Prescriptions: Metoclopramide HCl [Reglan] 5 mg PO Q6 #30 tablet Sucralfate [Carafate 1 gm Tablet] 1 gm PO ACHS #120 tablet Tramadol HCl [Ultram 50 mg Tablet] 50 mg PO ASDIR PRN #20 tablet PRN Reason: Forms: Return to Work
--- NOTE | 2017-08-21 14:22 | EKG REPORT ---
SEVERITY:- BORDERLINE ECG - SINUS RHYTHM BORDERLINE INFERIOR Q WAVES : Confirmed by: Angelika Carey 21-Aug-2017 14:21:42
--- NOTE | 2017-08-21 14:46 | RADIOLOGY REPORT (SQ) ---
EXAM DESCRIPTION: CT ABD/PELVIS WITH IV ONLY COMPLETED DATE/TIME: 08/21/2017 2:26 pm REASON FOR STUDY: epigastric pain COMPARISON: None. TECHNIQUE: CT scan of the abdomen and pelvis performed using helical scanning technique with and wit hout dynamic intravenous contrast injection. No oral contrast. Images reviewed with lung, soft tissu e, and bone windows. Reconstructed coronal and sagittal MPR images reviewed. Delayed images for evalu ation of the urinary system also acquired. All images stored on PACS. All CT scanners at this facility use dose modulation, iterative reconstruction, and/or weight based d osing when appropriate to reduce radiation dose to as low as reasonably achievable (ALARA). [facility]: Dose Right [facility]: CareDose [facility]: Dose Right [facility]: Teradose 4D [facility]: Soweso CONTRAST TYPE AND DOSE: contrast/concentration: Isovue 370.00 mg/ml; Total Contrast Delivered: 100.0 ml; Total Saline Delivered: 72.0 ml RENAL FUNCTION: Creatinine 1.13 RADIATION DOSE: CT Rad equipment meets quality standard of care and radiation dose reduction techniq ues were employed. CTDIvol: 15.8 - 19.6 mGy. DLP: 1893 mGy-cm.. LIMITATIONS: None. FINDINGS: LOWER CHEST: No significant findings. No nodules or infiltrates. LIVER: Normal size. No masses. No dilated ducts. SPLEEN: Normal size. No focal lesions. PANCREAS: No masses. No significant calcifications. No adjacent inflammation or peripancreatic fluid collections. Pancreatic duct not dilated. GALLBLADDER: No identified stones by CT criteria. No inflammatory changes to suggest cholecystitis. ADRENAL GLANDS: No significant masses or asymmetry. RIGHT KIDNEY AND URETER: No solid masses. No significant calcifications. No hydronephrosis or hyd roureter. LEFT KIDNEY AND URETER: No solid masses. No significant calcifications. No hydronephrosis or hydr oureter. AORTA AND VESSELS: No aneurysm. No dissection. Renal arteries, SMA, celiac without stenosis. RETROPERITONEUM: No retroperitoneal adenopathy, hemorrhage or masses. BOWEL AND PERITONEAL CAVITY: No masses or inflammatory changes. No free fluid or peritoneal masses. Scattered sigmoid diverticula. No diverticulitis. APPENDIX: Normal. PELVIS: No mass. No free fluid. Normal bladder. ABDOMINAL WALL: No masses. No significant hernias. BONES: No significant or acute findings. OTHER: No other significant finding. IMPRESSION: 1. NO ACUTE FINDING IN THE ABDOMEN OR PELVIS ON CT SCAN WITH IV CONTRAST. 2. Scattered sigmoid diverticula. No evidence of diverticulitis. TECHNICAL DOCUMENTATION: JOB ID: [id number] Quality ID # [id number]: Final reports with documentation of one or more dose reduction techniques (e.g., Au tomated exposure control, adjustment of the mA and/or kV according to patient size, use of iterative reconstruction technique) 2010 [employer]- All Rights Reserved
[2017-08-21 15:27] VITALS: BP 112/62
== END 2017-08-21 15:12 | disposition home or self-care (01) ==
LOC: ER 12:15
DX: K29.70 Gastritis, unspecified, without bleeding (principal); R10.13 Epigastric pain; F17.200 Nicotine dependence, unspecified, uncomplicated; I10 Essential (primary) hypertension
CPT/HCPCS: 93005; 99284; 96374; 96375; 36415; 83605; 83690; 85025; 80076; 80048; 84484; 74177; 93010; J2270; J2405; S0028

== ENCOUNTER 2020-09-03 09:44 | Emergency (ER) | payer BC ==
[2020-09-03] MEDS ORDERED: KETOROLAC TROMETHAMINE INJ/PF 30 MG/1 ML SDV IV ONE (10:53)
[2020-09-03] MEDS ORDERED: ONDANSETRON HCL INJ/PF 4 MG/2 ML SDV IV ONE (10:53)
[2020-09-03] MEDS ORDERED: NORMAL SALINE 1000 ML 1,000 ML IV ONE (10:54)
--- NOTE | 2020-09-03 11:01 | ER Document Report ---
ED General - General Stated Complaint: NAUSEA, LEFT SIDE ABDOMINAL PAIN Time Seen by Provider: 09/03/20 10:02 TRAVEL OUTSIDE OF THE [place] IN LAST 30 DAYS: No - HPI Notes: Chief complaint: Left lower quadrant abdominal pain History of present illness: Generally healthy 50-year-old female taking no long-term medications with no known allergies developed left lower quadrant pain 48 hours ago when this is grown progressively worse with associated subjective fever and nausea without vomiting. She denies dysuria. She denies back pain. Pain is currently rated 5/10. She has a remote history of peptic ulcer disease. She denies any known history of diverticulosis, diverticulitis or kidney stones. She notes that she has had a previous hysterectomy a number of years ago with no other major surgery. - Related Data Allergies/Adverse Reactions: No Known Allergies Allergy (Verified 09/03/20 10:55) Past Medical History - General Information source: Patient, [facility] Records - Social History Smoking Status: Current Every Day Smoker Frequency of alcohol use: None Drug Abuse: None Family History: Hypertension - Father age 63 hypertension, mother hypertension A. fib with pacemaker. No history of coronary artery disease. - Past Medical History Cardiac Medical History: Reports: Hx Hypertension - meds x 2-3 months Pulmonary Medical History: Reports: None Neurological Medical History: Endocrine Medical History: Reports: Hx Hypothyroidism Renal/ Medical History: Denies: Hx Kidney Stones, Hx Peritoneal Dialysis Malignancy Medical History: Reports: None GI Medical History: Reports: Hx Ulcer Musculoskeletal Medical History: Past Surgical History: Reports: Hx Hysterectomy, Hx Tubal Ligation. Denies: Hx Pacemaker - Immunizations Hx Diphtheria, Pertussis, Tetanus Vaccination: Yes - 2009 Review of Systems - Review of Systems Notes: Constitutional: As per HPI. HENT: Negative for sore throat. Eyes: Negative for visual changes. Cardiovascular: Negative for chest pain. Respiratory: Negative for shortness of breath. Gastrointestinal: As per HPI. Genitourinary: Negative for dysuria. Musculoskeletal: Negative for back pain. Skin: Negative for rash. Neurological: Negative for headaches, focal weakness or numbness. 10 point ROS negative except as marked above and in HPI. Physical Exam - Vital signs Vitals: Temp Pulse Resp BP Pulse Ox 98.2 F 95 16 147/78 H 98 09/03/20 09:48 09/03/20 09:48 09/03/20 09:48 09/03/20 09:48 09/03/20 09:48 - Notes Notes: GENERAL: Well-developed well-nourished middle-age female appearing moderately uncomfortable but nontoxic. SKIN: Good turgor no rashes. HEAD: Normocephalic atraumatic. EYES: PERRLA. EOMI. Conjunctivae and sclerae clear. EARS: CANALS AND TMS CLEAR. NOSE: CLEAR. MOUTH: Moist mucosa. Good dentition. No stridor or edema. No drooling. NECK: Supple. No masses or thyromegaly. No adenopathy. Carotids 2+ without bruits. No JVD. BACK: Symmetrical without tenderness. CHEST: Respirations unlabored. Breath sounds clear and symmetrical. HEART: Regular rhythm. No murmur gallop or rub. ABDOMEN: Moderate tenderness left lower quadrant. Soft without masses, organomegaly or rebound. Bowel sounds normally active. No bruits. GENITALIA: Deferred. EXTREMITIES: No edema. No calf tenderness. Cap refill less than 1.5 seconds. Dorsalis pedis and posterior tibial pulses 3+ and symmetrical. NEUROLOGICAL: GCS 15. Alert and oriented x3. Fluent speech. Cranial nerves II through XII intact. Sensorimotor and cerebellar normal. Normal tone. PSYCHIATRIC: Appropriate affect. Course - Re-evaluation Re-evalutation: 09/03/20 16:16 History and exam were suggestive of acute diverticulitis. Patient subsequently was found to have a white count about 13.[address] scan consistent with acute sigmoid diverticulitis. There is no evidence of perforation. Urinalysis is unremarkable. She got 2 doses of narcotic analgesics here with good relief of her discomfort. She also was given IV Zosyn here. She feels much better and wants to go home. Findings, clinical impression and plan of treatment have been discussed with patient/family. Understanding of current findings and recommendations has been acknowledged by them and there is agreement regarding disposition and follow-up. - Vital Signs Vital signs: Temp Pulse Resp BP Pulse Ox 98.2 F 95 16 147/78 H 98 09/03/20 09:48 09/03/20 09:48 09/03/20 09:48 09/03/20 09:48 09/03/20 09:48 - Laboratory Results Result Diagrams: 09/03/20 11:07 09/03/20 11:07 Laboratory Results Interpreted: 09/03/20 09/03/20 09/03/20 11:07 11:07 13:25 WBC 13.9 H Absolute Neuts (auto) 10.9 H Seg Neutrophils % 78.5 H Est GFR (MDRD) Non-Af 59 L Direct Bilirubin 0.5 H AST 100 H ALT 81 H Alkaline Phosphatase 132 H Urine Blood SMALL H Urine Urobilinogen 4.0 H Critical Laboratory Results Reviewed: Yes Attending or Supervising Physician who Reviewed Labs: YAZMIN ALMEIDA - Radiology Results Radiology Results Interpreted: 09/03/20 16:25 Abdomen/Pelvis CT 09/03/20 10:52 IMPRESSION: 1. Acute diverticulitis of the sigmoid colon. No abscess or free air. Abdomen/Pelvis CT 09/03/20 10:52 IMPRESSION: 1. Acute diverticulitis of the sigmoid colon. No abscess or free air. Critical Radiology Results Reviewed: Yes Attending or Supervising Physician who Reviewed Radiology: YAZMIN ALMEIDA Discharge - Discharge Clinical Impression: Acute diverticulitis Condition: Stable Disposition: HOME, SELF-CARE Instructions: Diverticulitis ([facility]) Additional Instructions: Take prescribed medications as directed. Return here as needed for new or worsening symptoms: Pain that is worsening or unimproved Uncontrolled vomiting High fever or shaking chills Overall worsening Prescriptions: Tramadol HCl [Ultram 50 mg Tablet] 50 mg PO Q4HP PRN #12 tab PRN Reason: Amoxicillin/Potassium Clav [Augmentin 875-125 Tablet] 1 tab PO Q12 10 Days #20 tablet Ondansetron [Zofran Odt 4 mg Tablet] 1 - 2 tab PO Q4H PRN #15 tab.rapdis PRN Reason: For Nausea/Vomiting Referrals: [facility] [Provider Group] - Follow up as needed
[2020-09-03 11:37] LABS: ABSOLUTE BASOPHILS # (AUTO) 0.1 10^3/uL (0.0-0.2); ABSOLUTE EOSINOPHILS # (AUTO) 0.1 10^3/uL (0.0-0.6); ABSOLUTE MONOCYTES (AUTO) 0.9 10^3/uL (0.1-1.4); ABSOLUTE NEUT (AUTO) 10.9 10^3/uL (1.7-8.2); BASOPHILS % (AUTO) 0.8 % (0-2); EOSINOPHILS % (AUTO) 0.4 % (0-6); HEMATOCRIT 41.9 % (36.0-47.0); HEMOGLOBIN 14.4 g/dL (12.0-15.5); LYMPHOCYTES % (AUTO) 14.1 % (13-45); MEAN CORPUSCULAR HEMOGLOBIN 29.1 pg (27.0-33.4); MEAN CORPUSCULAR HGB CONC 34.5 g/dL (32.0-36.0); MEAN CORPUSCULAR VOLUME 84 fl (80-97); MONOCYTES % (AUTO) 6.2 % (3-13); PLATELET COUNT 254 10^3/uL (150-450); RED BLOOD COUNT 4.96 10^6/uL (3.72-5.28); RED CELL DISTRIBUTION WIDTH 13.6 % (11.5-14.0); SEGMENTED NEUTROPHILS % (AUTO) 78.5 % (42-78); TOTAL CELLS COUNTED % (AUTO) 100 %; WHITE BLOOD COUNT 13.9 10^3/uL (4.0-10.5)
[2020-09-03 11:54] LABS: ALBUMIN 4.3 g/dL (3.5-5.0); ALKALINE PHOSPHATASE 132 U/L (38-126); ANION GAP 5 (5-19); ASPARTATE AMINO TRANSFERASE 100 U/L (14-36); BILIRUBIN,DIRECT 0.5 mg/dL (0.0-0.4); BILIRUBIN,TOTAL 1.2 mg/dL (0.2-1.3); BLOOD UREA NITROGEN 12 mg/dL (7-20); CALCIUM 9.2 mg/dL (8.4-10.2); CARBON DIOXIDE 29 mmol/L (22-30); CHLORIDE 103 mmol/L (98-107); GLUCOSE 99 mg/dL (75-110); POTASSIUM 3.9 mmol/L (3.6-5.0); TOTAL PROTEIN 7.3 g/dL (6.3-8.2)
[2020-09-03 13:42] LABS: APPEARANCE,URINE CLEAR; BILIRUBIN,URINE NEGATIVE (NEGATIVE); COLOR,URINE YELLOW; GLUCOSE, URINE NEGATIVE (NEGATIVE); KETONES,URINE NEGATIVE (NEGATIVE); PROTEIN,URINE NEGATIVE (NEGATIVE); URINE SPECIFIC GRAVITY 1.057
[2020-09-03] MEDS ORDERED: FENTANYL CITRATE INJ/PF 100 MCG/2 ML AMPUL IV ONE (13:54)
--- NOTE | 2020-09-03 14:04 | RADIOLOGY REPORT (SQ) ---
EXAM DESCRIPTION: CT ABD/PELVIS WITH IV ONLY IMAGES COMPLETED DATE/TIME: 09/03/2020 10:26 am REASON FOR STUDY: LLQ pain COMPARISON: 08/21/2017 TECHNIQUE: CT scan of the abdomen and pelvis performed using helical scanning technique with dynamic intravenous contrast injection. No oral contrast. Images reviewed with lung, soft tissue, and bone windows. Reconstructed coronal and sagittal MPR images reviewed. Delayed images for evaluation of the urinary system also acquired. All images stored on PACS. All CT scanners at this facility use dose modulation, iterative reconstruction, and/or weight based d osing when appropriate to reduce radiation dose to as low as reasonably achievable (ALARA). [facility]: Dose Right [facility]: CareDose [facility]: Dose Right [facility]: Teradose 4D [facility]: EyeEm CONTRAST TYPE AND DOSE: contrast/concentration: Isovue 350.00 mmol/ml; Total Contrast Delivered: 99. 0 ml; Total Saline Delivered: 44.3 ml RENAL FUNCTION: Creatinine 0.99 RADIATION DOSE: CT Rad equipment meets quality standard of care and radiation dose reduction techniq ues were employed. CTDIvol: 14.7 - 18.6 mGy. DLP: 1818 mGy-cm.. LIMITATIONS: None. FINDINGS: LOWER CHEST: No basilar consolidation or suspicious pulmonary nodule. LIVER: Mild decreased density suggestive of steatosis. No focal suspicious liver lesion. SPLEEN: Normal size. No focal lesions. PANCREAS: No masses. No significant calcifications. No adjacent inflammation or peripancreatic fluid collections. Pancreatic duct not dilated. GALLBLADDER: No identified stones by CT criteria. No inflammatory changes to suggest cholecystitis. ADRENAL GLANDS: No significant masses or asymmetry. RIGHT KIDNEY AND URETER: No solid masses. No significant calcifications. No hydronephrosis or hyd roureter. LEFT KIDNEY AND URETER: No solid masses. No significant calcifications. No hydronephrosis or hydr oureter. AORTA AND VESSELS: No aneurysm. No dissection. Renal arteries, SMA, celiac without stenosis. RETROPERITONEUM: No retroperitoneal adenopathy, hemorrhage or masses. BOWEL AND PERITONEAL CAVITY: Colon diverticulosis. Wall thickening and fat stranding in the sigmoid colon compatible with acute diverticulitis. No abscess or free air. No bowel obstruction. APPENDIX: Normal. PELVIS: Status posthysterectomy. No adnexal mass. Urinary bladder is unremarkable. ABDOMINAL WALL: Small fat containing supraumbilical hernia. Tiny fat containing umbilical hernia. BONES: No significant or acute findings. OTHER: No other significant finding. IMPRESSION: 1. Acute diverticulitis of the sigmoid colon. No abscess or free air. TECHNICAL DOCUMENTATION: JOB ID: [id number] Quality ID # [id number]: Final reports with documentation of one or more dose reduction techniques (e.g., Au tomated exposure control, adjustment of the mA and/or kV according to patient size, use of iterative reconstruction technique) 2010 [employer]- All Rights Reserved Reading location - IP/workstation name: [email or web address]
[2020-09-03] MEDS ORDERED: PIPERACILLIN/TAZOBACTAM 3.375 GM VIAL IV ONE (14:17)
[2020-09-03 16:33] VITALS: BP 130/70
== END 2020-09-03 16:40 | disposition home or self-care (01) ==
LOC: ER 09:44
DX: K57.32 Diverticulitis of large intestine without perforation or abscess without bleeding (principal); R10.32 Left lower quadrant pain; R10.814 Left lower quadrant abdominal tenderness; R11.0 Nausea; F17.200 Nicotine dependence, unspecified, uncomplicated; I10 Essential (primary) hypertension
CPT/HCPCS: 99285; 96361; 96375; 96365; 36415; 83690; 85025; 80053; 81001; 74177; J3010; J1885; J2405; J7030; J2543